=== PATIENT | male | born 2000 | race Two or more races ===

== ENCOUNTER 2023-10-27 08:01 | Emergency (ER) | payer OTHER ==
[~2023-10-27] VITALS: Ht 182.9 cm; Wt 76.4 kg
[2023-10-27 08:24] VITALS: BP 132/89; PULSE 75; RESP 19; TEMP 97; O2SAT 99
[2023-10-27 09:00] LABS: Urine Bacteria NONE SEEN /hpf (None Seen); Urine Blood TRACE /uL (Negative); Urine Clarity Clear (Clear); Urine Color Straw (Yellow); Urine Protein, UAD Negative (Negative); Urine Specific Gravity 1.011 (1.001-1.035); Urine Urobilinogen Normal (Negative); Urine WBC 5 /hpf (0 - 3)
== END 2023-10-27 09:41 | disposition home or self-care (01) ==
LOC: ER 08:01
DX: N43.3 Hydrocele, unspecified (principal)
CPT/HCPCS: 76870; 81001